=== PATIENT | male | born 1995 | race Two or more races ===

== ENCOUNTER 2019-08-08 13:47 | Emergency (ER) | payer MEDICAID, OTHER ==
[~2019-08-08] VITALS: Ht 185.4 cm; Wt 122.9 kg
--- NOTE | 2019-08-08 14:10 | NUR ---
dr richardson at bedside for eval.
--- NOTE | 2019-08-08 14:18 | NUR ---
CALLED PHARMACY FOR LEON.
--- NOTE | 2019-08-08 14:18 | NUR ---
PT BIB [facility] WITH A C/O SEIZURE. PT WAS TRIAGED AND TAKEN TO ER 13. SIDE RAILS UP X2 AND PADDED. 18G IV STARTED IN RAC. BLOOD WAS DRAWN AND SENT TO LAB.
[2019-08-08 14:21] LABS: BASOPHILS # (AUTO) 0.1 /CMM (0.0-0.2); BASOPHILS % (AUTO) 1.4 % (0.0-2.0); HEMATOCRIT 48 % (39-51); HEMOGLOBIN 16.4 g/dL (13.5-17.5); LYMPHOCYTES # (AUTO) 2.6 /CMM (0.8-4.8); LYMPHOCYTES % (AUTO) 29.5 % (20.0-44.0); MEAN CORPUSCULAR HGB CONC 34 g/dl (31.0-36.0); MEAN CORPUSCULAR VOLUME 90 fL (80-96); MONOCYTES # (AUTO) 0.7 /CMM (0.1-1.30); MONOCYTES % (AUTO) 7.9 % (2.0-12.0); NEUTROPHILS # (AUTO) 4.7 /CMM (1.8-8.9); NEUTROPHILS % (AUTO) 52.2 % (43.0-81.0); PLATELET COUNT (AUTO) 249 /CMM (150-450); RED BLOOD CELL COUNT(AUTO) 5.39 MIL/uL (4.5-6.0)
--- NOTE | 2019-08-08 14:29 | NUR ---
URINE SAMPLE OBTAINED AND SENT TO LAB.
[2019-08-08] MEDS ORDERED: IV NS 0.9% 1,000 ML IV ONE (14:30)
[2019-08-08 14:31] LABS: CALCIUM, SERUM 9.2 mg/dL (8.5-10.1); CARBON DIOXIDE 31 mmol/L (21-32); CHLORIDE 104 mmol/L (98-107); CREATININE 1.4 mg/dL (0.6-1.3); GLUCOSE 89 mg/dL (74-106); SODIUM SERUM 141 mmol/L (136-145); UREA NITROGEN, BLOOD 14 mg/dL (7-18)
[2019-08-08] MEDS: LEVETIRACETAM (500MG) 1,000 MG in IV NS 0.9% 100 ML IV SCH (14:31)
--- NOTE | 2019-08-08 14:31 | NUR ---
PT IS REC'ING LEON ORDERED.
[2019-08-08] MEDS ORDERED: LORAZEPAM INJ 2 MG/ML VIAL ONE (14:34)
--- NOTE | 2019-08-08 14:34 | NUR ---
PT IS ACTIVELY SEIZING. NOTIFIED.
[2019-08-08 14:37] LABS: ALANINE AMINOTRANSFERASE 22 U/L (12-78); ALBUMIN 3.8 g/dL (3.4-5.0); ALCOHOL, BLOOD < 3 mg/dL (0-0); ALKALINE PHOSPHATASE 97 U/L (46-116); ASPARTATE AMINOTRANSFERASE 16 U/L (15-37); BILIRUBIN,DIRECT 0.2 mg/dL (0.0-0.2); BILIRUBIN,TOTAL 0.6 mg/dL (0.2-1.0); TOTAL PROTEIN, SERUM 7.4 g/dL (6.4-8.2)
[2019-08-08] MEDS ORDERED: LORAZEPAM INJ 2 MG/ML VIAL IV ONE (15:00)
--- NOTE | 2019-08-08 16:04 | NUR ---
VANDANA DAWSON, GIRLFRIEND. [phone]
--- NOTE | 2019-08-08 17:08 | NUR ---
PT APPEARS TO BE RESTING COMFORTABLY. PT IS ON THE MONITOR AND CONTINUOUS POX.
--- NOTE | 2019-08-08 18:11 | NUR ---
PT APPEARS TO BE RESTING COMFORTABLY. PT'S CELL PHONE IS ON THE BACK OF THE BED.
--- NOTE | 2019-08-08 18:54 | NUR ---
SPOKE TO PT'S FATHER, JOESPH. HE IS GOING INTO WORK AT THE MOMENT, BUT WILL COORDINATE WITH SOMEONE TO PICK THE PT UP.
--- NOTE | 2019-08-08 19:16 | NUR ---
IV removed. Catheter intact and site benign. Pressure and 4x4 applied to site. No bleeding noted. Patient discharged to home in stable condition. Written and verbal after care instructions given. Patient verbalizes understanding of instruction. PT DID NOT HAVE ANYONE TO PICK HIM UP AND PT COULD NOT AFFORD A TAXI. PT REFUSED SHOES. PT WANTED TO TAKE THE BUS HOME. PT AMBULATED OUT WITH A STEADY GAIT. VSS.
[2019-08-08 19:18] VITALS: BP 111/78
== END 2019-08-08 19:18 | disposition home or self-care (01) ==
LOC: ER 13:59
DX: G40.909 Epilepsy, unspecified, not intractable, without status epilepticus (principal); F19.10 Other psychoactive substance abuse, uncomplicated; E86.0 Dehydration; F43.10 Post-traumatic stress disorder, unspecified; F42.9 Obsessive-compulsive disorder, unspecified
CPT/HCPCS: 36415; 70450; 71045; 80048; 80076; 80305; 80307; 82962; 85025; 93005; 96365; 96375; 99285; J1953; J2060; J7030 ×2; G0480

== ENCOUNTER 2019-08-09 14:36 | Emergency (ER) | payer MEDICAID, OTHER ==
[~2019-08-09] VITALS: Ht 195.6 cm; Wt 124.7 kg
--- NOTE | 2019-08-09 14:50 | NUR ---
[id number] FRM HOME, TOOK APPROX 30PCS KEPPRA 500MG. W/ INTENT TO KILL SELF. PATIENT A/OX4, BREATHING EVEN AND UNLABORED, NO SOB NOTED. NEEDS ATTENDED.
[2019-08-09] MEDS ORDERED: LORAZEPAM INJ 2 MG/ML VIAL ONE (15:05)
--- NOTE | 2019-08-09 15:12 | NUR ---
PATIENT NOTED TO HAVE SEIZURE LIKE EPISODE. DR. BALBUENA MADE AWARE. PATIENT PLACED ON OXYGEN. SEIZURE PRECAUTION OBSERVED.
[2019-08-09 15:25] LABS: BASOPHILS # (AUTO) 0.1 /CMM (0.0-0.2); BASOPHILS % (AUTO) 1.1 % (0.0-2.0); EOSINOPHILS % (AUTO) 6.6 % (0.0-6.0); HEMATOCRIT 48 % (39-51); HEMOGLOBIN 16.3 g/dL (13.5-17.5); LYMPHOCYTES # (AUTO) 4.4 /CMM (0.8-4.8); LYMPHOCYTES % (AUTO) 35.9 % (20.0-44.0); MEAN CORPUSCULAR HGB CONC 34 g/dl (31.0-36.0); MEAN CORPUSCULAR VOLUME 89 fL (80-96); MONOCYTES # (AUTO) 0.8 /CMM (0.1-1.30); MONOCYTES % (AUTO) 6.4 % (2.0-12.0); NEUTROPHILS # (AUTO) 6.1 /CMM (1.8-8.9); PLATELET COUNT (AUTO) 266 /CMM (150-450); RED BLOOD CELL COUNT(AUTO) 5.42 MIL/uL (4.5-6.0); WHITE BLOOD COUNT (AUTO) 12.2 K/uL (4.3-11.0)
[2019-08-09] MEDS ORDERED: LORAZEPAM INJ 2 MG/ML VIAL IM ONE (15:30)
[2019-08-09 15:35] LABS: MAGNESIUM 2.1 mg/dL (1.8-2.4)
[2019-08-09 15:38] LABS: CALCIUM, SERUM 9.2 mg/dL (8.5-10.1); CARBON DIOXIDE 23 mmol/L (21-32); CHLORIDE 107 mmol/L (98-107); CREATININE 1.3 mg/dL (0.6-1.3); GLUCOSE 98 mg/dL (74-106); POTASSIUM 4.2 mmol/L (3.5-5.1); SODIUM SERUM 144 mmol/L (136-145); UREA NITROGEN, BLOOD 9 mg/dL (7-18)
[2019-08-09 15:44] LABS: ALANINE AMINOTRANSFERASE 20 U/L (12-78); ALBUMIN 3.9 g/dL (3.4-5.0); ALCOHOL, BLOOD < 3 mg/dL (0-0); ALKALINE PHOSPHATASE 83 U/L (46-116); ASPARTATE AMINOTRANSFERASE 15 U/L (15-37); BILIRUBIN,DIRECT 0.2 mg/dL (0.0-0.2); BILIRUBIN,TOTAL 1.2 mg/dL (0.2-1.0); TOTAL PROTEIN, SERUM 7.2 g/dL (6.4-8.2)
[2019-08-09 15:45] LABS: ACETAMINOPHEN < 2 ug/ml (10-30); SALICYLATE 1.6 mg/dL (2.8-20.0)
--- NOTE | 2019-08-09 17:00 | NUR ---
PATIENT ASLEEP BUT EASILY AROUSABLE. NO DISTRESS NOTED.
[2019-08-09 18:58] LABS: APPEARANCE,URINE Clear (CLEAR); BILIRUBIN,URINE SMALL (NEGATIVE); BLOOD, URINE Negative Ery/uL (NEGATIVE); COLOR,URINE Yellow (YELLOW); KETONES,URINE Trace (NEGATIVE); LEUKOCYTE ESTERASE ,URINE Negative (NEGATIVE); NITRITE, URINE Negative (NEGATIVE); PROTEIN,URINE Negative (NEGATIVE); UGLUCOSE Negative (NEGATIVE)
[2019-08-09 19:07] LABS: BACTERIA,URINE Rare /HPF (None Seen); RBC,URINE NONE SEEN /HPF (0-2); SQUAMOUS EPITHELIAL CELL,UR Few /HPF (None Seen); WBC,URINE NONE SEEN /HPF (0-3)
--- NOTE | 2019-08-09 19:34 | NUR ---
sumanth rn at bedside for evaluation.
--- NOTE | 2019-08-09 19:34 | NUR ---
endorsed to Angel CRAIG.
--- NOTE | 2019-08-09 20:27 | NUR ---
CALLED [facility]. SAID CANNOT TRANSPORT UNTIL THEY GET SPECIFIC ROOM NUMBER.
--- NOTE | 2019-08-09 21:00 | NUR ---
report given to lydia murillo at [facility]; [facility] room 9b
--- NOTE | 2019-08-09 21:18 | NUR ---
called transport, #[id number]. awaiting further call back for eta.
--- NOTE | 2019-08-09 21:27 | NUR ---
eta 45 min [facility]
--- NOTE | 2019-08-09 21:44 | NUR ---
PROVIDED PT WITH FOOD AND WATER
[2019-08-09 22:02] VITALS: BP 122/53
--- NOTE | 2019-08-09 22:10 | NUR ---
PT TRANSPORTED TO [facility]IA [facility]IVATE AM[facility]ULANCE, PT LEFT IN STABLE CONDITION ,VSS, -SOB. REPORT GIVEN TO [facility] STAFF. ALL BELONGINGS WITH PATIENT
== END 2019-08-09 22:12 ==
LOC: ER 14:42
DX: R45.851 Suicidal ideations (principal); G40.909 Epilepsy, unspecified, not intractable, without status epilepticus; F43.10 Post-traumatic stress disorder, unspecified; R94.31 Abnormal electrocardiogram [ECG] [EKG]
CPT/HCPCS: 36415; 80048; 80076; 80305; 80307; 80329; 81001; 82550; 82962; 83735; 85025; 93005; 96372; 99285; G0480; J2060; 81000-TC